=== PATIENT | male | born 1960 | race Caucasian/White ===

== ENCOUNTER 2019-05-17 02:07 | Emergency (ER) | payer OTHER ==
[~2019-05-17] VITALS: Ht 180.3 cm; Wt 120.2 kg
[~2019-05-17 02:07] MED LIST: ASPIRIN325 PO; FIORICET 50-301 EACH PO; FLOMAX0.4 MG PO; FLONASE 0.05%50 MCG; HYDROCHLOROTH12.5 MG; HYDROCODONE-APA1 TA1 PO; LISINOPRIL20 MG; PERCOCET 5-3251 EACH PO; PROPRANOLOL 1010 MG PO; RELPAX20 MG; ZOFRAN ODT4 MG PO
[2019-05-17] MEDS ORDERED: INDERAL LA120 M1 (02:24)
[2019-05-17] MEDS ORDERED: AMLODIPINE-BEN1 EAC2 (02:25)
[2019-05-17 02:46] LABS: HEMATOCRIT 50.3 % (42.0-52.0); MCH 28.7 pg (26.0-34.0); MCHC 33.8 g/dL (28.0-37.0); MCV 84.8 fL (80.0-100.0); MPV 7.8 fl. (7.2-11.1); NUCLEATED RBCS 0 /100WBC; PLATELET COUNT* 243 thou/uL (150-400); RBC 5.94 mil/uL (4.50-6.00); RDW-CV 15.2 % (10.5-14.5); WBC 14.4 thou/uL (4.0-11.0)
[2019-05-17 03:07] LABS: CALCIUM 9.4 mg/dL (8.5-10.1); CREATININE 1.1 mg/dL (0.6-1.3); POTASSIUM 4.1 mmol/L (3.5-5.1); TOTAL PROTEIN 8.1 g/dL (6.4-8.2)
[2019-05-17 03:11] LABS: INFLUENZA A ANTIGEN Negative (Negative); INFLUENZA B ANTIGEN Negative (Negative)
[2019-05-17 05:30] LABS: ABSOLUTE LYMPHOCYTES 0.1 thou/uL (0.8-5.3); ABSOLUTE MONOCYTES 0.4 thou/uL (0.0-1.2); ABSOLUTE NEUTROPHILS 13.8 thou/uL (1.6-8.1); ANISOCYTOSIS 1+; PLATELET ESTIMATE ADEQUATE; POIKILOCYTOSIS 1+
[2019-05-17] MEDS ORDERED: ZOFRAN ODT4 MG PO (06:30)
[2019-05-17 06:45] VITALS: BP 154/95
== END 2019-05-17 06:45 | disposition home or self-care (01) ==
LOC: M.ERS 02:07
PROVIDERS: Personal Emergency Response Attendant
DX: K52.9 Noninfective gastroenteritis and colitis, unspecified (principal); G43.909 Migraine, unspecified, not intractable, without status migrainosus; I10 Essential (primary) hypertension; Z96.659 Presence of unspecified artificial knee joint; Z96.649 Presence of unspecified artificial hip joint

== ENCOUNTER 2021-01-21 23:41 | Emergency (ER) | payer OTHER ==
[~2021-01-21] VITALS: Ht 154.9 cm; Wt 120.2 kg
[~2021-01-21 23:41] MED LIST changes: +AMLODIPINE-BEN1 EAC2; +INDERAL LA120 M1
[2021-01-21] MEDS ORDERED: FLONASE 0.05%50 MCG NARES (23:56)
[2021-01-22 00:48] LABS: HEMATOCRIT 49.8 % (42.0-52.0); HEMOGLOBIN 16.2 gm/dL (14.0-18.0); MCH 28.7 pg (26.0-34.0); MCHC 32.6 g/dL (28.0-37.0); MCV 88.2 fL (80.0-100.0); MPV 7.5 fl. (7.2-11.1); RBC 5.65 mil/uL (4.50-6.00); RDW-CV 14.2 % (10.5-14.5); WBC 11.7 thou/uL (4.0-11.0)
[2021-01-22 01:10] LABS: CALCIUM 9.7 mg/dL (8.5-10.1); CREATININE 1.2 mg/dL (0.6-1.3); POTASSIUM 3.9 mmol/L (3.5-5.1)
[2021-01-22 01:15] LABS: TOTAL BILIRUBIN 0.6 mg/dL (<0.1-1.0); TOTAL PROTEIN 7.9 g/dL (6.4-8.2)
[2021-01-22 02:23] LABS: URINE BILIRUBIN NEGATIVE (Negative); URINE BLOOD NEGATIVE (Negative); URINE CLARITY CLEAR; URINE COLOR YELLOW; URINE GLUCOSE-RANDOM NEGATIVE (Negative); URINE KETONES NEGATIVE (Negative); URINE LEUKOCYTES-REFLEX NEGATIVE (Negative); URINE NITRITE-REFLEX NEGATIVE (Negative); URINE PROTEIN NEGATIVE (Negative); URINE UROBILINOGEN 0.2 E.U./dl (0.2-1.0)
[2021-01-22] MEDS ORDERED: ZOFRAN ODT4 MG PO (02:29)
[2021-01-22] MEDS ORDERED: ULTRAM 50MG TAB50 MG PO (02:29)
[2021-01-22 02:50] VITALS: BP 160/97
== END 2021-01-22 02:51 | disposition home or self-care (01) ==
LOC: M.ERS 23:41
PROVIDERS: Personal Emergency Response Attendant
DX: N23 Unspecified renal colic (principal); R11.2 Nausea with vomiting, unspecified; I10 Essential (primary) hypertension; Z88.6 Allergy status to analgesic agent; Z88.5 Allergy status to narcotic agent; Z79.899 Other long term (current) drug therapy